=== PATIENT | male | born 1970 | race Two or more races ===

== ENCOUNTER 2024-05-16 12:47 | Emergency (ER) | payer MEDICAID, OTHER ==
[~2024-05-16] VITALS: Ht 180.3 cm; Wt 98.9 kg
[2024-05-16 13:08] VITALS: BP 141/100; PULSE 105; RESP 18; TEMP 97; O2SAT 95
[2024-05-16] MEDS: ACETAMINOPHEN 325 MG TAB PO ONE (13:08)
[2024-05-16] MEDS: CYCLOBENZAPRINE HCL 10 MG TAB PO ONE (13:08)
[2024-05-16] MEDS: KETOROLAC TROMETH 30 MG/ML 1ML VIAL IM ONE (13:09)
--- NOTE | 2024-05-16 13:09 | ED.PDOC ---
History of Present Illness HPI Comments 54 y/o M, presents to the ED for CC of back pain. Patient states, he has been experiencing lower back pain [id number]. 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 Patient comments, that he's taken over the counter pain medication which have provided relief until, they wear off. Patient denies trauma, other musculoskeletal pain, or neck pain. No other symptoms or modifying factors present at this time. Time Seen by MD: 13:00 Reviewed Notes: Nurses Notes, Medications, Allergies Allergies: Coded Allergies: NO KNOWN ALLERGIES (Unverified , 05/16/24) Information Source: Patient Mode of Arrival: Ambulatory Severity: Moderate Timing: Months Duration: Since onset Prehospital treatment: None Past Medical History PAST MEDICAL HISTORY: Denies Surgical History: Denies all surgeries Family History Family History: Unknown Social History Smoker: Non-Smoker Alcohol: Denies ETOH Use Drugs: Denies Drug Use Lives In: Home Constitutional: denies: chills, diaphoresis, fatigue, fever, malaise, sweats, weakness, others EENTM: denies: blurred vision, double vision, ear bleeding, ear discharge, ear drainage, ear pain, ear ringing, eye pain, eye redness, hearing loss, mouth pain, mouth swelling, nasal discharge, nose bleeding, nose congestion, nose pain, photophobia, tearing, throat pain, throat swelling, voice changes, others Respiratory: denies: cough, hemoptysis, orthopnea, SOB at rest, shortness of breath, SOB with excertion, stridor, wheezing, others Cardiovascular: denies: chest pain, dizzy spells, diaphoresis, Dyspnea on exertion, edema, irregular heart beat, left arm pain, lightheadedness, palpitations, PND, syncope, others Gastrointestinal: denies: abdomen distended, abdominal pain, blood streaked bowels, constipated, diarrhea, dysphagia, difficulty swallowing, hematemesis, melena, nausea, poor appetite, poor fluid intake, rectal bleeding, rectal pain, vomiting, others Genitourinary: denies: burning, dysuria, flank pain, frequency, hematuria, incontinence, penile discharge, penile sore, pain, testicle pain, testicle swelling, urgency, others Neurological: denies: dizziness, fainting, headache, left sided numbness, left sided weakness, numbness, paresthesia, pre-existing deficit, right sided numbness, right sided weakness, seizure, speech problems, tingling, tremors, weakness, others Musculoskeletal: reports: back pain; denies: gout, joint pain, joint swelling, muscle pain, muscle stiffness, neck pain, others Integumetry: denies: bruises, change in color, change in hair/nails, dryness, laceration, lesions, lumps, rash, wounds, others Allergic/Immunocompromised: denies: Difficulty Healing, Frequent Infections, Hives, Itching, others Hematologic/Lymphatic: denies: anemia, blood clots, easy bleeding, easy bruising, swollen glands, others Endocrine: denies: excessive hunger, excessive sweating, excessive thirst, excessive urination, flushing, intolerance to cold, intolerance to heat, unexplained weight gain, unexplained weight loss, others Psychiatric: denies: anxiety, bipolar disorder, depression, hopeless, panic disorder, schizophrenia, sleepless, suicidal, others All Other Systems: Reviewed and Negative Physical Exam General Appearance: No Apparent Distress, Normal HEENT: Normal ENT Inspection, Pharynx Normal, TMs Normal Neck: Full Range of Motion, Non-Tender, Normal, Normal Inspection Respiratory: Chest Non-Tender, Lungs Clear, No Accessory Muscle Use, No Respiratory Distress, Normal Breath Sounds Cardiovascular: No Edema, No JVD, No Murmur, No Gallop, Normal Peripheral Pulses, Regular Rate/Rhythm Breast Exam: Deferred Gastrointestinal: No Organomegaly, Non Tender, No Pulsatile Mass, Normal Bowel Sounds, Soft Genitalia: Deferred Pelvic: Deferred Rectal: Deferred Extremities: No calf tenderness, Normal capillary refill, Normal inspection, Normal range of motion, Non-tender, No pedal edema Musculoskeletal : Extremity Location: Back (perispinal tenderness) Apperance: Normal Neurologic: Alert, 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 Was a procedure done?: No Differential Dx Considerations may include: Muscle strain, fracture, sprain X-Ray, Labs, Meds, VS Vital Signs Date Time Temp Pulse Resp B/P (MAP) Pulse Ox O2 Delivery O2 Flow Rate FiO2 05/16/24 13:08 97.0 105 18 141/100 (114) 95 97.0 05/16/24 12:56 98.1 105 18 141/100 (114) 95 98.1 05/16/24 12:56 105 18 95 Room Air Current Medications Medications (Trade) Dose Ordered Sig/Rashid Route Start Time Stop Time Status Last Admin Acetaminophen (Tylenol Tablet) 650 mg ONCE ONCE PO 05/16/24 13:15 05/16/24 13:16 DC 05/16/24 13:08 Ketorolac Tromethamine (Toradol Injection) 15 mg ONCE ONCE IM 05/16/24 13:15 05/16/24 13:16 DC 05/16/24 13:09 Cyclobenzaprine HCl (Flexeril Tablet) 5 mg ONCE ONCE PO 05/16/24 13:15 05/16/24 13:16 DC 05/16/24 13:08 Lidocaine (Lidoderm 5% Topical Patch) 1 patch ONCE ONCE TOP 05/16/24 13:15 05/16/24 13:16 DC 05/16/24 13:19 [place] [id number] Ph: [phone] DIAGNOSTIC IMAGING Diagnostic Imaging Report : [id number] Signed PATIENT: AVTAR ALEXANDRA ACCT: [id number] UNIT: [id number] : 1970 LOC: ER ROOM / BED: / AGE / SEX: 54 / M ADM STATUS: REG ER SERVICE 1302 ORDERING PHYSICIAN: MAHAD CLOUD MD PROCEDURE(s): LUMB2 - LUMBAR SPINE 3 VIEW REASON: lumbar pain for 5 weeks ORDER NUMBER(s): [id number], ACCESSION NUMBER(s): [id number] CLINICAL INDICATION: lumbar pain for 5 weeks TECHNIQUE: 3 radiographic views of the lumbar spine were obtained. Comparison: None FINDINGS/IMPRESSION: 5 [id number] lumbar-type vertebrae. Straightening of the lumbar lordosis. Vertebral body heights are maintained. No evidence for acute traumatic fractures or spondylolisthesis. Bridging osteophyte over the right lateral L1-L2. Small to moderate amount of fecal material within the colon. sis. Multilevel [id number] degenerative changes of the lumbar spine. ATED BY: RADHA BRANDT DO DICTATED DATE/TIME: 05/16/24 1340 SIGNED BY: RADHA BRANDT DO SIGNED DATE/TIME: 05/16/24 1340 CC: Time of 1ST Reevaluation: 13:30 Reevaluation 1ST: Unchanged Patient Education/Counseling: Diagnosis, Treatment Family Education/Counseling: No Family Present Departure 1 Departure Time of Disposition: 14:42 (Patient's x-rays benign. Patient reports the medications helped and he is feeling significantly better. We will discharge patient home with outpatient follow up) Impression: Primary Impression: Lumbar sprain Qualified Codes: S33.5XXA - Sprain of ligaments of lumbar spine, initial encounter Disposition: HOME / SELF CARE / HOMELESS Condition: Stable Referrals: DAVID REYES MD Additional Instructions: You likely sprained your lumbar muscles. You can use heat and cold packs as needed for pain. You can use over the counter lidocaine patches daily. For pain you can take the followinam: Ibuprofen 400mg with food Noon: Acetaminophen 1000mg 4pm: Ibuprofen 400mg with food 8pm: Acetaminophen 1000mg You were prescribed muscle relaxers. Please take as directed. You were referred to Dr. Reyes, our orthopedic spine surgeon to ensure you are healing well. Please call for an appointment at [phone] If your symptoms worsen or you have any other concerns then please return to the ER. e-Prescriptions Cyclobenzaprine Hcl (Cyclobenzaprine Hcl) 5 Mg Tab 1 TAB PO TID PRN for 7 Days, #21 TAB Prov: MAHAD CLOUD MD 05/16/24 Discharged With: Self Critical Care Note Critical Care Time?: No Stability Stability form required: No Heart Score Heart Score: Heart Score Response (Comments) Value History N/A 0 EKG N/A 0 Age N/A 0 Risk Factors N/A 0 Troponin N/A 0 Total 0 I personally scribed for MAHAD CLOUD MD ([email or web address]) on 05/16/24 at 13:09. Electronically submitted by Leigh Ann Cruz ([email or web address]). I personally scribed for MAHAD CLOUD MD ([email or web address]) on 05/16/24 at 14:14. Electronically submitted by Leigh Ann Cruz ([email or web address]). MAHAD CLOUD MD May 16, 2024 13:09
[2024-05-16] MEDS: LIDOCAINE 5% TOPICAL PATCH TOP ONE (13:19)
--- NOTE | 2024-05-16 13:43 | DVH ---
CLINICAL INDICATION: lumbar pain for 5 weeks TECHNIQUE: 3 radiographic views of the lumbar spine were obtained. Comparison: None FINDINGS/IMPRESSION: 5 [id number] lumbar-type vertebrae. Straightening of the lumbar lordosis. Vertebral body heigh ts are maintained. No evidence for acute traumatic fractures or spondylolisthesis. Bridging osteophyt e over the right lateral L1-L2. Small to moderate amount of fecal material within the colon. sis. Multilevel [id number] degene rative changes of the lumbar spine.
[2024-05-16] MEDS ORDERED: CYCL-837 PO (14:49)
== END 2024-05-16 15:01 | disposition home or self-care (01) ==
LOC: ER 12:47
DX: S33.5XXA Sprain of ligaments of lumbar spine, initial encounter (principal); X58.XXXA Exposure to other specified factors, initial encounter; Y93.89 Activity, other specified; Y92.89 Other specified places as the place of occurrence of the external cause; Y99.8 Other external cause status
CPT/HCPCS: 72100; 96372; 99284; J1885